=== PATIENT | male | born 1980 | race Caucasian/White ===

== ENCOUNTER → 2017-05-14 07:01 | Outpatient (CLI) | payer OTHER, SELFPAY ==
--- NOTE | 2017-05-14 07:00 | CT_ITS ---
STUDY: CT CHEST WITHOUT CONTRAST REASON FOR EXAM: Male, 36 years old. History of pulmonary nodules. RADIATION DOSAGE (If Supplied By Facility): CTDIvol = ( 16.71 ) mGy, DLP = ( 659.81 ) mGycm TECHNIQUE: Transaxial imaging was performed without the administration of intravenous contrast material. Multiplanar coronal and sagittal images were reformatted. Individualized dose optimization techniques were used for this CT. COMPARISON: Comparison is made with prior CT scan of the chest dated August 10, [address] scan and abdomen dated February 01, 2017. FINDINGS: A 2 mm noncalcified nodule is seen in the anterior inferior aspect of the lingular segment of the left upper lobe as seen on axial image 89. A 2 mm noncalcified nodule is also seen in the left lower lobe adjacent to the left diaphragmatic leaflet on axial image 89. These may represent tiny granulomas. There is no demonstrated pleural abnormality. Normal heart and pericardium. Normal mediastinum. Normal hilar regions. Normal unenhanced pulmonary arteries. Normal aorta arch and descending thoracic aorta. There are degenerative changes of the thoracic spine. There is no demonstrated abnormality of the visualized upper abdomen. CT/Chest without Contrast IMPRESSION: Stable appearance of the small noncalcified nodules in the lingular segment of the left upper lobe as well as in the posterior aspect of the left lower lobe. A follow-up examination in 12 months is recommended. Electronically Signed: Samuel Swenson MD at 15:53 EST Tel [phone], Service support ,
== END ==
PROVIDERS: Family Provider Internal Medicine; PCP Internal Medicine; Visit Provider Internal Medicine Critical Care Medicine
DX: R91.1 Solitary pulmonary nodule (principal)
CPT/HCPCS: 71250

== ENCOUNTER 2018-03-18 07:42 | Emergency (ER) | payer OTHER, SELFPAY ==
[2018-03-18 07:43] VITALS: BP 147/88; PULSE 72; RESP 16; TEMP 36.2; O2SAT 98; BMI 26.6
--- NOTE | 2018-03-18 08:03 | ED.VISSUMM ---
- ER Visit Summary Date of Service: 03/18/18 Chief Complaint: Right calf sensation and migration medial right thigh History of Present Illness: The patient is a 37 M who has no significant past medical history on no medications presents because of mid right calf pain. His description of the pain is a sensation. He presents because of concern for DVT and specifically because it migrated. He states the pain was junction of the mid distal third of the medial right thigh. He now complains of a sensation at the junction of the mid and proximal third of the right thigh medial side. He denies chest pain, shortness of breath dyspnea on exertion. He has no risk factors for PE or DVT and no prior history. Physical Examination: Blood pressure is elevated 147/88. He appears in no distress. Examination the right leg reveals no swelling, discoloration, leg vein distention, palpable coarseness on the distribution of deep venous system. There is no inguinal lymphadenopathy. PT DP pulses are 2+ and symmetric. There is no pain to palpation the calf or medial right thigh. There is no findings to suggest superficial thrombophlebitis. Test Results: Well score for DVT is -2. Emergency Department Course and Treatment: Patient asked why I felt he did not have a DVT. After long explanation and discussion he was informed of the well score for DVT, studies that compared to Yi scoring system versus gestalt versus the use of d-dimer. He was informed of the cause of the sensation that he had in his right calf and now the sensation that he experienced medial right thigh is unknown. He was instructed to take ibuprofen. He felt that discomfort/sensation was not significant enough to warrant taking ibuprofen. Treatment Plan: Appropriate home-going instructions Disposition: Discharge to home Impression: Intermittent right calf and medial right thigh pain of unknown etiology initial encounter This note was generated with i[employer] dictation software. It may contain incorrect words, spelling, and punctuation that were not noted in review of the chart prior to signing ED Disposition - Plan for ED Patient: Disposition: Home or Assisted Living Chief Complaint: Lower Extremity Injury Instructions: ED Acute Pain [facility] Referrals: Janeth Blas, [Primary Care Provider] - 3-5 Days if not improving
--- NOTE | 2018-03-18 08:07 | ED.DCSUM_ITS ---
- ER Visit Summary Date of Service: 03/18/18 Chief Complaint: Right calf sensation and migration medial right thigh History of Present Illness: The patient is a 37 M who has no significant past medical history on no medications presents because of mid right calf pain. His description of the pain is a sensation. He presents because of concern for DVT and specifically because it migrated. He states the pain was junction of the mid distal third of the medial right thigh. He now complains of a sensation at the junction of the mid and proximal third of the right thigh medial side. He denies chest pain, shortness of breath dyspnea on exertion. He has no risk factors for PE or DVT and no prior history. Physical Examination: Blood pressure is elevated 147/88. He appears in no distress. Examination the right leg reveals no swelling, discoloration, leg vein distention, palpable coarseness on the distribution of deep venous system. There is no inguinal lymphadenopathy. PT DP pulses are 2+ and symmetric. There is no pain to palpation the calf or medial right thigh. There is no findings to suggest superficial thrombophlebitis. Test Results: Well score for DVT is -2. Emergency Department Course and Treatment: Patient asked why I felt he did not have a DVT. After long explanation and discussion he was informed of the well score for DVT, studies that compared to Wolof scoring system versus gestalt v ersus the use of d-dimer. He was informed of the cause of the sensation that he had in his right calf and now the sensation that he experienced medial right thigh is unknown. He was instructed to take ibuprofen. He felt that discomfort/sensation was not significant enough to warrant taking ibuprofen. Treatment Plan: Appropriate home-going instructions Disposition: Discharge to home Impression: Intermittent right calf and medial right thigh pain of unknown etiology initial encounter This note was generated with [employer] dictation software. It may contain incorrect words, spelling, and punctuation that were not noted in review of the chart prior to signing ED Disposition - Plan for ED Patient: Disposition: Home or Assisted Living Chief Complaint: Lower Extremity Injury Instructions: ED Acute Pain [facility] Referrals: Janeth Blas DO [Primary Care Provider] - 3-5 Days if not improving
--- OUTSIDE RECORDS SUMMARY | 2018-06-19 12:51 | XMS RPT_ITS ---
:1980 Author Organization OHIP Care Team Providers Name Role Phone Janeth Blas Primary Care Unavailable Jozef Cantu Attending Unavailable Elias Sheets D.O. Attending Unavailable Elias Sheets D.O. Referring Unavailable Janeth Blas Primary Care Unavailable Fely Carrillo Attending Unavailable Janeth Blas Referring Unavailable PROBLEMS PROBLEMS DATE TYPE CONDITION / CODE ATTENDING STATUS SOURCE 05/23/2017 Unknown R91.1 - Solitary Clara Carrillo pulmonary nodule Fely [facility] / R91.1(ICD-10) Hospital Repository PROCEDURES PROCEDURES No Procedure Records FoundRESULTS RESULTS EMERGENCY DEPARTMENT Observed: 03/18/2018 Status: F Source: [place] SUMMARY 8:08 AM [facility] REPOSITORY [facility] Medical Records Department [address] [place] [address] Emergency Department Summary 03/18/18 0803 MR#: [id number] Acct: [id number] Name: JOSH ROBERSON Rep #: [id number] : 1980 37 From: Jozef Cantu MD PCP: Janeth Blas DO Status: REG ER - ER Visit Summary Date of Service: 03/18/18 Chief Complaint: Right calf sensation and migration medial right thigh History of Present Illness: The patient is a 37 M who has no significant past medical history on no medications presents because of mid right calf pain. His description of the pain is a sensation. He presents because of concern for DVT and specifically because it migrated. He states the pain was junction of the mid distal third of the medial right thigh. He now complains of a sensation at the junction of the mid and proximal third of the right thigh medial side. He denies chest pain, shortness of breath dyspnea on exertion. He has no risk factors for PE or DVT and no prior history. Physical Examination: Blood pressure is elevated 147/88. He appears in no distress. Examination the right leg reveals no swelling, discoloration, leg vein distention, palpable coarseness on the distribution of deep venous system. There is no inguinal lymphadenopathy. PT DP pulses are 2+ and symmetric. There is no pain to palpation the calf or medial right thigh. There is no findings to suggest superficial thrombophlebitis. Test Results: Well score for DVT is -2. Emergency Department Course and Treatment: Patient asked why I felt he did not have a DVT. After long explanation and discussion he was informed of the well score for DVT, studies that compared to Faroese scoring system versus gestalt versus the use of d-dimer. He was informed of the cause of the sensation that he had in his right calf and now the sensation that he experienced medial right thigh is unknown. He was instructed to take ibuprofen. He felt that discomfort/sensation was not significant enough to warrant taking ibuprofen. Treatment Plan: Appropriate home-going instructions Disposition: Discharge to home Impression: Intermittent right calf and medial right thigh pain of unknown etiology initial encounter This note was generated with [employer] dictation software. It may contain incorrect words, spelling, and punctuation that were not noted in review of the chart prior to signing ED Disposition - Plan for ED Patient: Disposition: Home or Assisted Living Chief Complaint: Lower Extremity Injury Instructions: ED Acute Pain UKO Referrals: Janeth Blas DO [Primary Care Provider] - 3-5 Days if not improving What to do if you have Problems For any increased pain, shortness of breath, bleeding, nausea or vomiting, chest pain, or any unexpected problems, contact your Primary Care Provider. Call [facility] ([phone]) or report to the closest Emergency Room. Call 911 if necessary. 03/18/18 0808 <Electronically signed by Jozef Cantu MD> Date Jozef Cantu MD Cosigner Signature (If Indicated): Date CC: Janeth Blas DO PROGRESS Observed: 03/10/2018 Status: COMPLETED Source: [place] 9:01 PM [facility] REPOSITORY O ID: [id number] Author: Soraida Cruz Service: (none) Author Type: Nurse Practitioner Type: Progress Notes Filed: 03/10/2018 9:08 PM Note Text: Subjective HPI Pt presents with concern for cellulitis to right forearm/elbow. State had a quarter sized area of red, hot skin x 3 days. States the next am, redness had spread to elbow and elbow was swollen and very tender to touch. Denies fever, chills, myalgias. Denies recent/remote injury No hx gout. Father has gout. Denies participation in sports, repetitive/overuse movements. Full ROM, no pain with flexion/extension. Has taken 4 doses of PCN left over from 's rx for an illness. States swelling has decreased 50% and redness is lead handler in color. Has taken several doses of ibuprofen as well. Review of Systems Constitutional: Negative for chills and fever. Musculoskeletal: Positive for joint pain. Negative for myalgias. Skin: Positive for rash. Objective Physical Exam Constitutional: He is oriented to person, place, and time and well-developed, well-nourished, and in no distress. No distress. Musculoskeletal: Right elbow: He exhibits swelling. He exhibits normal range of motion, no effusion, no deformity and no laceration. No tenderness found. No radial head, no medial epicondyle, no lateral epicondyle and no olecranon process tenderness noted. Full active ROM against resistance. Mild erythema over elbow extending about 1/2 in to upper and lower arm. No heat, induration, rash noted. Moderate swelling. Sensory inact Cap refill 2 sec. Brachial and radial pulses 2+. Neurological: He is alert and oriented to person, place, and time. Skin: Skin is warm and dry. He is not diaphoretic. BP 130/82 Pulse 68 Temp 36.6 ?C (97.8 ?F) (Tympanic) Resp 16 Wt 90.9 kg (200 lb 6.4 oz) BMI 27.17 kg/m? .Patient presents with: right elbow cellulitis: stated 48 hours ago and cannot recall an injury No past medical history on file. No past surgical history on file. ALLERGIES Patient has no known allergies. MEDICATIONS ibuprofen (MOTRIN) 400 mg tablet Take 1 tablet by mouth every 6 hours as needed. predniSONE (DELTASONE) 20 mg tablet Take 2 tablets by mouth once daily for 5 days. Take daily with food. sulfamethoxazole-trimethoprim (BACTRIM DS) 800-160 mg per tablet Take 1 tablet by mouth twice daily for 10 days. acetaminophen (TYLENOL) 325 mg tablet Take 2 tablets by mouth every 6 hours as needed for Fever. docusate sodium (COLACE) 100 mg capsule Take 1 capsule by mouth twice daily. oxyCODONE immediate release (PERCOLONE) 5 mg immediate release tablet Take 1-2 tablets by mouth every 4 hours as needed. Iron 18 mg tab Take 1 tablet by mouth twice daily. No family history on file. Social History Substance Use Topics - Smoking status: Never Smoker - Smokeless tobacco: Never Used - Alcohol use Not on file ASSESSMENT/PLAN: 1. Skin irritation - ICD9: 709.9, ICD10: R23.8 (primary diagnosis) - SULFAMETHOXAZOLE 800 MG-TRIMETHOPRIM 160 MG TABLET 2. Elbow swelling, right - ICD9: 719.02, ICD10: M25.421 - PREDNISONE 20 MG TABLET Reviewed red flag SANDS septic joint, SANDS requiring emergent evaluation. Pt verbalizes understanding. The patient is instructed to return or seek emergency treatment if symptoms become worse or with any acute change in condition. The patient verbalizes understanding and is in agreement with plan of care. Soraida Cruz CNP CNOV Observed: 03/10/2018 Status: COMPLETED Source: [place] 7:15 PM [facility] REPOSITORY Office Visit (WSTR) JOSH ROBERSON ([id number]) 1980 M Date Time Provider Department 03/10/18 7:[address] [facility] During your visit today, we recorded the following information about you: Temperature Pulse Respiration Blood pressure 97.8 degrees 68/minute 16/minute 130/82 Weight 90.9 kg Soraida Cruz APRN.CNP 03/10/2018 9:08 PM Signed Subjective HPI Pt presents with concern for cellulitis to right forearm/elbow. State had a quarter sized area of red, hot skin x 3 days. States the next am, redness had spread to elbow and elbow was swollen and very tender to touch. Denies fever, chills, myalgias. Denies recent/remote injury No hx gout. Father has gout. Denies participation in sports, repetitive/overuse movements. Full ROM, no pain with flexion/extension. Has taken 4 doses of PCN left over from 's rx for an illness. States swelling has decreased 50% and redness is lead handler in color. Has taken several doses of ibuprofen as well. Review of Systems Constitutional: Negative for chills and fever. Musculoskeletal: Positive for joint pain. Negative for myalgias. Skin: Positive for rash. Objective Physical Exam Constitutional: He is oriented to person, place, and time and well-developed, well-nourished, and in no distress. No distress. Musculoskeletal: Right elbow: He exhibits swelling. He exhibits normal range of motion, no effusion, no deformity and no laceration. No tenderness found. No radial head, no medial epicondyle, no lateral epicondyle and no olecranon process tenderness noted. Full active ROM against resistance. Mild erythema over elbow extending about 1/2 in to upper and lower arm. No heat, induration, rash noted. Moderate swelling. Sensory inact Cap refill 2 sec. Brachial and radial pulses 2+. Neurological: He is alert and oriented to person, place, and time. Skin: Skin is warm and dry. He is not diaphoretic. BP 130/82 Pulse 68 Temp 36.6 ?C (97.8 ?F) (Tympanic) Resp 16 Wt 90.9 kg (200 lb 6.4 oz) BMI 27.17 kg/m? .Patient presents with: right elbow cellulitis: stated 48 hours ago and cannot recall an injury No past medical history on file. No past surgical history on file. ALLERGIES Patient has no known allergies. MEDICATIONS ibuprofen (MOTRIN) 400 mg tablet Take 1 tablet by mouth every 6 hours as needed. predniSONE (DELTASONE) 20 mg tablet Take 2 tablets by mouth once daily for 5 days. Take daily with food. sulfamethoxazole-trimethoprim (BACTRIM DS) 800-160 mg per tablet Take 1 tablet by mouth twice daily for 10 days. acetaminophen (TYLENOL) 325 mg tablet Take 2 tablets by mouth every 6 hours as needed for Fever. docusate sodium (COLACE) 100 mg capsule Take 1 capsule by mouth twice daily. oxyCODONE immediate release (PERCOLONE) 5 mg immediate release tablet Take 1-2 tablets by mouth every 4 hours as needed. Iron 18 mg tab Take 1 tablet by mouth twice daily. No family history on file. Social History Substance Use Topics - Smoking status: Never Smoker - Smokeless tobacco: Never Used - Alcohol use Not on file ASSESSMENT/PLAN: 1. Skin irritation - ICD9: 709.9, ICD10: R23.8 (primary diagnosis) - SULFAMETHOXAZOLE 800 MG-TRIMETHOPRIM 160 MG TABLET 2. Elbow swelling, right - ICD9: 719.02, ICD10: M25.421 - PREDNISONE 20 MG TABLET Reviewed red flag SANDS septic joint, SANDS requiring emergent evaluation. Pt verbalizes understanding. The patient is instructed to return or seek emergency treatment if symptoms become worse or with any acute change in condition. The patient verbalizes understanding and is in agreement with plan of care. Soraida Cruz CNP Referring Provider: SELF [[id number]] Allergies As of Date: 03/10/2018 (No Known Allergies) Date Reviewed: 03/10/2018 Reviewed by: Indira Steward LPN - Fully Assessed Reason for Visit: right elbow cellulitis [Other] Cmt: stated 48 hours ago and cannot recall an injury Primary Visit Diagnosis:Skin irritation [R23.8] Other Visit Diagnosis:Elbow swelling, right [M25.421] Order(s):predniSONE (DELTASONE) 20 mg tabletTake 2 tablets by mouth once daily for 5 days. Take daily with food.Disp: 10 tabletRfl: 0 sulfamethoxazole-trimethoprim (BACTRIM DS) 800-160 mg per tabletTake 1 tablet by mouth twice daily for 10 days.Disp: 20 tabletRfl: 0 Prescriptions as of 03/10/2018 Sig: IBUPROFEN 400 MG TABLET Take 1 tablet by mouth every * PREDNISONE 20 MG TABLET Take 2 tablets by mouth once * SULFAMETHOXAZOLE 800 MG-TRIME* Take 1 tablet by mouth twice * ACETAMINOPHEN 325 MG TABLET Take 2 tablets by mouth every* DOCUSATE SODIUM 100 MG CAPSULE Take 1 capsule by mouth twice* Patient not taking: Reported on 03/10/2018 OXYCODONE 5 MG TABLET Take 1-2 tablets by mouth tony* Patient not taking: Reported on 03/10/2018 IRON 18 MG TABLET Take 1 tablet by mouth twice * Problem List As Of Date 03/10/2018 Noted Resolved LGI bleed [K92.2] INVALID FOR* Hemorrhoids [K64.9] INVALID FOR* Post-operative pain [G89.18] INVALID FOR* Prescriptions ordered this encounter Disp Refills Start End PREDNISONE 20 MG TABLET 10 t* 0 03/10/2018 03/15/2018 Route: ORAL Sig: Take 2 tablets by mouth once daily for 5 days. Take daily with food. SULFAMETHOXAZOLE 800 MG-TRIMETHOPRIM* 20 t* 0 03/10/2018 03/20/2018 Cmt: Ok to give generic equivalent Route: ORAL Sig: Take 1 tablet by mouth twice daily for 10 days. Encounter Status:Closed by SORAIDA CRUZ CNP on 03/10/18 PULMONARY VISIT REPORT Observed: 05/23/2017 Status: F Source: [place] 8:36 AM [facility] REPOSITORY [facility] [address] [place] [address] OFFICE VISIT Date of Service: 05/23/17 MR#: [id number] Acct: [id number] Name: JOSH ROBERSON Rep #: [id number] : 1980 Provider: Fely Carrillo Age/Sex: 36/M Location: [facility] Status: Signed Assessment AND Plan 1. Pulmonary nodule R91.[address] of the chest. Follow-up in 1 year. He may contact the office meantime if new or worsening symptoms present. Orders Orders: Plan Detail Follow Up 1 Year (DMB) HPI 1 M FU: Chief Complaint: review CT results HPI Comments Details: This is a 36 year old very pleasant M, currently under the care of Janeth Blas, here today to review test results. I personally reviewed the tests/images/tracings which showed: I personally reviewed a chest CT, that was completed on May 14, 2017, that showed 2 stable 2 mm nodules, one in the left upper lobe and one in the left lower lobe. [place] to be granulomas. Per Fleischner's guidelines follow-up will be a repeat CT in 12 months. He denies any shortness of breath, wheezing or chest tightness. He denies any weight loss or easy bruising/bleeding. He denies any lymphadenopathy. He denies any cough or sputum production, denies hemoptysis. See complete review of systems. Intake Vital Signs05/23/17 Height 6 ft 05/23/17 Weight: 207 lb Intake Visit Reasons: 1 M FU Allergies No Known Allergies Allergy (Verified 02/01/17 19:05) [facility] Medical History Pulmonary nodule (Chronic) Rectal prolapse (Acute) Acute bacterial conjunctivitis (Acute) Acute posthemorrhagic anemia (Acute) Allergic rhinitis (Acute) Chest pain on breathing (Acute) Chlamydia contact (Acute) Elevated d-dimer (Acute) Hematuria, microscopic (Acute) Neoplasm of uncertain behavior of skin (Acute) Paresthesias (Acute) Sleep deprivation (Acute) Thyromegaly (Acute) Anxiety (Chronic) Pulmonary nodules (Chronic) Tremor (Chronic) Surgical History H/O hemorrhoidectomy (Resolved) right ankle surgery (Resolved) Family History Mother bipolar disorder Grandmother Breast cancer Alzheimers disease Sister Fibromyalgia Social History household members: none Smoking Status: Never smoker second hand exposure: No alcohol intake: current alcohol intake frequency: holidays/special occasions only substance use type: does not use caffeine: Yes Type: coffee what type of physical activity do you participate in: walking frequency: daily Review of Systems Const CONSTITUTIONAL: Negative anorexia, body ache, chills, daytime sleepiness, fever(s), night sweats, oral thrush, stops breathing during sleep, weight loss, sleeping in chair, fatigue, weight loss, weight gain, frequent colds, seasonal allergies, other, headache(s) or orthopnea EETM Ear Nose Throat Mouth: Positive hearing normal; negative hard of hearing, hoarseness, dry mouth in morning, change in vision, itchy eyes, eye pain, swallowing Difficulty, ear pain, nose bleed, headache(s), mouth pain, nasal congestion, nasal discharge, post nasal drip, sinus pain, sinus pressure, sore throat or other Cardio Cardiovascular: Negative chest pain, chest pain at rest, chest pain with activity, irregular heart rhythm, edema, shortness of breath when lying down, palpitations, murmur or other Resp Respiratory: Positive as per HPI; negative shortness of breath, pain with cough, wheezing, chest congestion, cough, chest tightness, pain on inspiration, inhalers, increase use of rescue inhalers, snoring, apnea or other Gastro Gastrointestional: Negative bloody stools, change in appetite, difficulty swallowing, reflux, hematemesis, melena stool, loose stool, constipation or other Genitourinary: Negative blood in urine, nocturia, pain with urination or other Musc Musculoskeletal: Negative body pain, back pain, neck pain or other Skin/Breast Skin/Breast: Negative dry skin, itching, rash, unusual bruising, breast lump or other Neuro Neurological: Negative restless legs, confusion, weakness or other Psych Psychocological: Negative abnormal sleep pattern, anxiety, thoughts of hurting self/others, hopelessness or other Lymph Lymphatic: Negative easy bleeding, easy bruising, swollen lymph nodes or other Exam Const Constitutional: Positive conversant, cooperative, in no acute respiratory distress, healthy appearing, well developed, well nourished and good hygiene Head Head: Positive normocephalic and atraumatic; negative cyanosis of lips/distal nose Eyes Eye: Positive clear conjunctiva and nystagmus; negative scleral abnormality Ears Ear: Positive hearing normal and external ears normal; negative hard of hearing Nose Nose: Positive external nose normal and no nasal discharge; negative epistaxis Mouth Mouth: Positive oral mucosae normal, no lesions, good dentition and posterior oropharynx is adequate; negative post nasal drip, malodorous breath or oral thrush present Mallampati Score: I: Mallampati Score Neck Neck: Positive normal visual inspection, full ROM and trachea midline; negative lymphadenopathy, JVD or tender Chest Wall Chest: Positive normal inspection of the chest and symmetric chest movement; negative increased A/P diameter Resp lung sounds: Positive clear to auscultation, good air exchange, normal expiratory time and normal respiratory effort; negative diminished, wheezes, rhonchi, rales, dullness to percussion, wheeze present on forced exhalation, increased work of breathing or use of accessory muscles Cardio Cardiac: Positive regular rate; negative murmur, regular rhythm, S1 normal or S2 normal GI GI: Positive normal to inspection and normal bowel sounds; negative distended Genitourinary: Positive deferred Musc Musculoskeletal: Positive steady gait and ROM normal; negative kyphosis or scoliosis Skin Pulmonary Skin Exam: Positive intact; negative rash, lesion, ulcers, erythema, scaly or dermal atrophy Pulses Pulse: Yes pulses normal x4 extremities Extremities Extremities: Yes capillary refill normal, No clubbing, No cyanosis, No edema, No stasis dermatitis Neuro Neurologic: Yes conversant, Yes no focal neuro deficits, Yes cooperative, Yes normal cognition, Yes normal coordination, Yes understands questions, Yes normal concentration Lymph Lymphatic: No lymphadenopathy, No tenderness, No cervical adenopathy, No axillary adenopathy Psych Appearance: Positive grossly normal, eye contact and well kempt Mental Status: Positive mental status grossly normal Mood: Positive congruent mood Affect: Positive normal affect Coding Level of Care Code Off vis,est,level 3 Diagnoses Pulmonary nodule R91.1 05/23/17 0836 <Electronically signed by Fely GARCIA> Date Fely Carrillo MARINE STRUCTURAL DESIGNER-C Cosigner Signature: Date (if applicable) CC: Janethbhavna Blas DO CHEST WITHOUT Observed: 05/14/2017 Status: F Source: [place] CONTRAST 7:03 AM [facility] REPOSITORY [facility] Imaging Services [address] [place] [address] Chest without Contrast MR#: [id number] Acct: [id number] Name: JOSH ROBERSON Rep #: [id number] : 1980 M 36 From: Samuel Swenson MD PCP: Janeth Blas DO Status: REG CLI Study: Chest without Contrast Date of Exam: 05/14/17 Exam# [id number] Ordering Dr: Elias Sheets DO STUDY: CT CHEST WITHOUT CONTRAST REASON FOR EXAM: Male, 36 years old. History of pulmonary nodules. RADIATION DOSAGE (If Supplied By Facility): CTDIvol = ( 16.71 ) mGy, DLP = ( 659.81 ) mGycm TECHNIQUE: Transaxial imaging was performed without the administration of intravenous contrast material. Multiplanar coronal and sagittal images were reformatted. Individualized dose optimization techniques were used for this CT. COMPARISON: Comparison is made with prior CT scan of the chest dated August 10, [address] scan and abdomen dated February 01, 2017. FINDINGS: A 2 mm noncalcified nodule is seen in the anterior inferior aspect of the lingular segment of the left upper lobe as seen on axial image 89. A 2 mm noncalcified nodule is also seen in the left lower lobe adjacent to the left diaphragmatic leaflet on axial image 89. These may represent tiny granulomas. There is no demonstrated pleural abnormality. Normal heart and pericardium. Normal mediastinum. Normal hilar regions. Normal unenhanced pulmonary arteries. Normal aorta arch and descending thoracic aorta. There are degenerative changes of the thoracic spine. There is no demonstrated abnormality of the visualized upper abdomen. CT/Chest without Contrast IMPRESSION: Stable appearance of the small noncalcified nodules in the lingular segment of the left upper lobe as well as in the posterior aspect of the left lower lobe. A follow-up examination in 12 months is recommended. Electronically Signed: Samuel Swenson MD at 15:53 EST Tel [phone], Service support , CC: Elias Sheets D.O.; Janeth Blas DO Research Psychologist: Signed ALLERGIES ALLERGIES DATE TYPE / CODE NAME / CODE REACTION SEVERITY SOURCE 03/18/2018 Drug No Known Unknown [facility] Allergy/416 Allergies/Q30610 Hospital 854931(SNOM 0388(RXNORM) Repository ED CT) Drug NO KNOWN [facility] Class/02355 ALLERGIES [facility] 1003(SNOMED Repository CT) ENCOUNTERS ENCOUNTERS ADMIT/DISCHARGE ACCOUNT ADMITTING ENCOUNTER LOCATION SOURCE NUMBER CLASS 03/18/2018/03/18/20 [id number] Emergency [address] ing:ED Repository 03/10/2018/03/11/20 [id number] Ambulatory [address] Repository 05/23/2017/05/23/19 [id number] Ambulatory BMSBuilding:B [address] Repository 05/14/2017 [id number] Ambulatory [facility] ing:CT Repository PAYERS PAYERS ENCOUNTER GUARANTOR PAYER SUBSCRIBER SOURCE 03/18/2018 JOSH Vasquez Primary JOSH Gifford [id number] Insurance:[place]ANT[place]: [id number] Number: 5956Effective Repository [address]Zmn: [phone] Date:[id number] [phone] () [address]ICAL [address], [place] [address]OJ: 03/18/2018 Secondary NOT GIVENUNK [place] Insurance:SELF PAY [facility] Number: Effective Repository Date:2018-03-18 05/23/2017 JOSH Vasquez Primary JOSH ROBERSON[address] Insurance:[place]ANT[place]: [place] [id number], [place] Number: [id number] Repository [id number]: ([phone]) Date:[id number] [phone] () [address], [place] [address]DJ: 05/23/2017 Secondary NOT GIVENUNK [place] Insurance:SELF PAY [facility] Number: Effective Repository Date:2017-04-23 05/14/2017 ABDI Primary JOSH ROBERSON[address] Insurance:[place]: [facility] Center[facility] [id number], [place] Number: [id number] Repository [phone]: ([phone]) Date:[id number] [phone] () [address], [place] [address]QW: 05/14/2017 Secondary NOT GIVENUNK [place] Insurance:SELF PAY [facility] Number: Effective Repository Date:2017-04-23
== END 2018-03-18 08:10 | disposition home or self-care (01) ==
PROVIDERS: Emergency Provider Emergency Medicine; Family Provider Internal Medicine; PCP Internal Medicine
DX: M79.661 Pain in right lower leg (principal); M79.651 Pain in right thigh; R03.0 Elevated blood-pressure reading, without diagnosis of hypertension
CPT/HCPCS: 99282

== ENCOUNTER 2020-10-17 03:50 | Emergency (ER) | payer BC, SELFPAY ==
[2020-10-17 03:53] VITALS: BP 134/85; PULSE 65; RESP 19; TEMP 36.8; O2SAT 98; BMI 27.1
--- NOTE | 2020-10-17 04:03 | EKG12_ITS ---
Test Reason : CP Blood Pressure : / mmHG Vent. Rate : 062 BPM Atrial Rate : 062 BPM P-R Int : 146 ms QRS Dur : 094 ms QT Int : 406 ms P-R-T Axes : 036 036 020 degrees QTc Int : 412 ms Normal sinus rhythm with sinus arrhythmia Normal ECG Confirmed by SUSANNE HEREDIA, ALMAZ ([id number]), purchase request editor ALBINO REDMAN ([id number]) on 10/19/2020 12:30:55 PM Referred By: PAUL Confirmed By:ALMAZ SKINNER MD
[2020-10-17 04:08] LABS: Absolute Lymphocyte Count 1.94 X10^3/uL (0.83-4.51); Basophil# 0.05 X10^3/uL; Basophil% 1.1 % (0-1); Eosinophil# 0.12 X10^3/uL; Eosinophils% 2.6 % (0-5); Hematocrit 40.8 % (40-54); Hemoglobin 14.1 g/dL (13.0-16.5); Lymphocyte # 1.94 X10^3/ul (0.83-4.51); Lymphocyte % 42.5 % (19-41); Mean Corp Hgb Conc 34.6 g/dL (32-36); Mean Corpuscular Hgb 31.4 pg (27.0-32.0); Mean Corpuscular Volume 90.9 fL (80-94); Mean Platelet Vol. 10.1 fl (6.2-12.0); Monocyte# 0.44 X10^3/uL; Monocyte% 9.6 % (0-10); NRBC Flagged by Analyzer 0 % (0-5); Neutrophil # 1.99 X10^3/uL (2.7-7.7); Neutrophil % 43.8 % (47-70); Platelet Count 229 K/mm3 (150-450); RBC Distribution Width CV 11.9 % (11.6-14.6); RBC Distribution Width SD 39.4 fl (35.1-43.9); Red Blood Count 4.49 M/mm3 (4.6-6.2); White Blood Count 4.6 K/mm3 (4.4-11.0)
--- NOTE | 2020-10-17 04:10 | ED.VIS.CHEST ---
HPI History of Present Illness Chief Complaint: Chest Pain Informant: patient Onset/Context/Timing Onset: Today Activity at onset: unknown Timing: Intermittent Location: Left Chest Current Severity: Gone Maximum Severity: Mild Worsened By: Movement of Arm and Movement of Torso Associated Symptoms: Negative for Nausea, Vomiting, Diaphoresis, Cough, Fever and Lightheadedness Narrative Narrative: 40-year-old male no seen past medical history. Works as a builder. Said he does not sleep well normally awoke tonight and he had some left upper chest discomfort which she said was made worse with movement. He thinks he may have injured it at his job but he said he does not remember any specific injury. He denies nausea or diaphoresis. He said he may have been a little short of breath but is not currently in the chest pain is now gone. Said he got on the Internet became anxious and came in to be evaluated. He has never had a DVT or PE denies any leg pain or swelling. His last trip was over a month ago. He denies any hemoptysis or pleuritic pain. There is no significant family history of cardiac disease or blood clots in his family. He denies any recent exertional chest pain or exertional shortness of breath. Prior Similar Symptoms: No Recent Illness/Hospitalization: No CVD Risk Factors: Negative for Hypertension, Diabetes, Hypercholesterolemia, Family History 1' </=55 and Smoking PE Risk Factors: Negative for Recent Travel/Surgery, Recent Immobilization, Prior DVT or PE, Cancer and OCP + Smoking + >/=35 TAD Risk Factors: Negative for Marfan's Syndrome and Hypertension [facility] Medical History (Updated 10/17/20 @ 04:[address] Spencer Harrington MD) Acute bacterial conjunctivitis Acute posthemorrhagic anemia Allergic rhinitis Anxiety Chest pain on breathing Chlamydia contact Elevated d-dimer Hematuria, microscopic Neoplasm of uncertain behavior of skin Paresthesias Pulmonary nodule Pulmonary nodules Rectal prolapse Sleep deprivation Thyromegaly Tremor Home Medications NK 03/18/18 [History Last Taken Unknown] Allergy/AdvReac Type Severity Reaction Status Date / Time No Known Allergies Allergy Verified 10/17/20 03:52 Family History Mother bipolar disorder Grandmother Breast cancer Alzheimers disease Sister Fibromyalgia Surgical History H/O hemorrhoidectomy right ankle surgery Social History household members: none Smoking Status: Former smoker second hand exposure: No alcohol intake: current alcohol intake frequency: holidays/special occasions only substance use type: does not use caffeine: Yes Type: coffee what type of physical activity do you participate in: walking frequency: daily ROS ROS ED ROS Narrative Denies. Review of Systems ROS Unobtainable: Denies due to encephalopathy Constitutional Constitutional ED: Denies chills or fever(s) Eyes Eyes: Denies none ENT ENT ED: Denies ear pain or sore throat Cardiovascular Cardiovascular: Reports chest pain; Denies palpitations or racing heartbeat Respiratory/Chest Respiratory/Chest: Reports dyspnea; Denies cough or sputum Gastrointestinal Gastrointestinal: Denies abdominal pain, nausea or vomiting Genitourinary Genitourinary ED: Denies dysuria Musculoskeletal Musculoskeletal: Denies myalgias Integumentary Denies abscess or rash Neurologic Neurologic: Denies headache(s) Psychiatric Psychiatric: Denies depression Endocrine Endocrinology: Denies polyuria Hematologic/Lymphatic Hematologic/Lymphatic: Denies easy bruising Allergic/Immunologic Allergic/Immunologic ED: Denies urticaria EXAM Physical Exam Narrative Exam Narrative: Well-appearing middle-aged male. Slightly anxious. Vital signs stable afebrile. Pulse ox 90% on room air no signs hypoxia. HEENT exam normal. Neck nontender no JVD. Lungs clear to auscultation bilaterally. Heart regular rate and rhythm no murmur rate about 65. Chest were nontender. Abdomen soft nontender normal bowel sounds no peritoneal signs. Remedies moves all 4. Calves nontender no edema no cords. Equal symmetrical radial pulses. Back nontender. Neurologically is awake alert with no focal motor deficits. Const Vital Signs: 10/17/20 03:53 10/17/20 03:55 10/17/20 04:18 Temperature 98.2 F Temperature Source Temporal Pulse Rate 65 Respiratory Rate 19 H Respiratory Effort Normal Respiratory Pattern Normal Blood Pressure 134/85 H Blood Pressure Mean 101 Pulse Ox 98 Oxygen Delivery Method Room Air Room Air Positive well nourished and well developed General Appearance ED: well developed and NAD HEENT Reports moist mucous membranes normocephalic and atraumatic Eyes PERRL and EOMs intact bilaterally Neck no lymphadenopathy, supple and no JVD General: Negative for tenderness Chest Wall inspection of chest normal and palpation of chest normal Chest: Negative for tenderness Resp normal respiratory effort and clear to auscultation bilaterally Effort and Inspection: respiratory distress Cardio regular rate, regular rhythm, S1 normal heart sound, S2 normal heart sound and no murmurs Rate: Negative for bradycardia or tachycardic GI normal to inspection, nondistended, normoactive bowel sounds, soft to palpation, non-tender, non-distended and no masses; Negative for hepatosplenomegaly Auscultation: Negative for hyperactive bowel sounds Palpation: Negative for splenomegaly Back/Spine no CVA tenderness Extremity normal to inspection General Extremety ED: Negative for edema, pulses abnormal or tenderness General Extremity: Negative for edema or pulses abnormal Neuro oriented x3 and CN's II-XII intact bilaterally Sensorium / Orientation: awake, alert, oriented to person, oriented to place and oriented to time Motor Exam: strength 5/5 throughout Psych mental status grossly normal Mood & Affect: anxious Skin no rashes or lesions noted and no wounds Heart Score History: Slightly/Non-Suspicious ECG: Normal Age: </= 45 years Risk Factors: No Risk Factors Troponin: </= Normal Limit Score: 0 MDM MDM MDM Narrative Medical decision making narrative: Patient with atypical noncardiac sounding chest pain. No recent symptoms. Clinically is anxious. No history of DVT or PE or strong risk factors. No calf pain or swelling. Undergo cardiac work-up. Clinically I think this is more anxiety. Repeat exam patient is doing well at 5:18 AM. He and I went over all his test results he will be discharged to home. He is resting comfortably his exam is normal and unchanged. He will follow up with his primary care physician. Lab Data Attestation: I reviewed the patient's lab results. Lab results narrative: CBC normal white count of 4 hemoglobin 14. EKG unremarkable. Electrolytes unremarkable gap at 9. Creatinine of 1. Troponin IV. Labs: Laboratory Results - last 24 hr 10/17/20 10/17/20 04:00 04:00 WBC 4.6 RBC 4.49 L Hgb 14.1 Hct 40.8 MCV 90.9 MCH 31.4 MCHC 34.6 RDW Std Deviation 39.4 RDW Coeff of Poli 11.9 Plt Count 229 MPV 10.1 Immature Gran % (Auto) 0.400 Neut % (Auto) 43.8 L Lymph % (Auto) 42.[address] [place] % (Auto) 9.6 Eos % (Auto) 2.6 Baso % (Auto) 1.1 H Absolute Neuts (auto) 2.0 Absolute Lymphs (auto) 1.94 Nucleated RBC % 0 Sodium 141 Potassium 3.6 Chloride 108 H Carbon Dioxide 24.0 Anion Gap 9 BUN 12 Creatinine 1.08 Estim Creat Clear Calc 101.79 Est GFR (MDRD) Af Amer 98 Est GFR (MDRD) Non-Af 81 BUN/Creatinine Ratio 11.1 Glucose 94 Calcium 8.5 Troponin I High Sens 4.4 Radiography Chest X-Ray - ED: 1 View, Read by ED Physician, Heart, Lungs, Mediastinum, Bony Structures and No Acute Disease Diagnostic Testing: Portable 1 view chest x-ray entered by myself shows no acute abnormality. Rhythm Strip Rhythm Strip: Sinus Rhythm Rate: 62 Ectopy: None EKG Initial EKG: Attestation: I personally reviewed and interpreted this EKG as follows: Interpretation: Sinus Rhythm and No Acute Injury Pattern Comments: Normal sinus rhythm rate of 62 no acute signs of CO or ischemia. Prior EKG tracings: not available for review Discharge Plan Triage Chief Complaint: Chest Pain ED Provider: Spencer Harrington Dx/Rx/DC Orders Clinical Impression: Chest pain of uncertain etiology Instructions: ED Chest Pain, Noncardiac, ED Chest Pain, Uncertain Cause Prescriptions: No Action NK RF: 0 Primary Care Provider: Janeth Blas Referrals: Janeth Blas DO [Primary Care Provider] - 3-5 Days if not improving Disposition Disposition: Home, Self Care
--- NOTE | 2020-10-17 04:15 | RAD_ITS ---
STUDY: X-RAY CHEST REASON FOR EXAM: Male, 40 years old. chest pain TECHNIQUE: Single AP portable view of the chest. COMPARISON: CT scan chest 05/14/2017. FINDINGS: w there is a metallic TB overlying the right lower lung field, possibly an artifact. There are no confluent pulmonary infiltrates. There is no demonstrated pleural abnormality. Normal size heart. Normal mediastinum and peter. Normal visualized aortic arch and descending thoracic aorta. There are no demonstrated acute fractures or destructive bone lesions. There is no demonstrated abnormality of the visualized soft tissue structures of the upper abdomen. RAD/Chest 1 View (Portable) IMPRESSION: No evidence for acute cardiopulmonary pathology. Electronically Signed: Edgardo Jett MD at 6:39 EDT , Service support ,
[2020-10-17] MEDS: Aspirin 81 MG TAB.CHEW 324 MG PO (04:24)
[2020-10-17 04:37] LABS: Anion Gap 9 (5-15); BUN 12 mg/dL (7-18); BUN/Creat Ratio 11.1 RATIO (10-20); Calcium,Total 8.5 mg/dL (8.5-10.1); Chloride 108 mmol/L (98-107); Creatinine, Serum 1.08 mg/dL (0.70-1.30); EST Glomerular Filtration Rate 81 mL/min (>60); Est Glom Filt Rate - Afr Amer 98 mL/min (>60); Estimated Creatinine Clearance 101.79 ml/min; Glucose 94 mg/dL (74-106); Potassium 3.6 mmol/L (3.5-5.1); Sodium Level 141 mmol/L (136-145); Troponin-I HS 4.4 pg/mL (3.0-78.5)
[2020-10-17 05:32] VITALS: BP 102/64; PULSE 116; RESP 20; O2SAT 97
== END 2020-10-17 05:32 | disposition home or self-care (01) ==
PROVIDERS: Emergency Provider Emergency Medicine; PCP Internal Medicine
DX: R07.9 Chest pain, unspecified (principal); Z87.891 Personal history of nicotine dependence
CPT/HCPCS: 71045; 80048; 84484; 85025; 93005; 99285

== ENCOUNTER 2022-04-05 12:40 | Emergency (ER) | payer BC, SELFPAY ==
[2022-04-05 12:41] VITALS: BP 164/96; PULSE 72; RESP 18; TEMP 36.4; O2SAT 95; BMI 27.8
--- NOTE | 2022-04-05 13:18 | EKG12_ITS ---
Test Reason : CP Blood Pressure : / mmHG Vent. Rate : 072 BPM Atrial Rate : 072 BPM P-R Int : 148 ms QRS Dur : 084 ms QT Int : 384 ms P-R-T Axes : 024 020 012 degrees QTc Int : 420 ms Normal sinus rhythm Normal ECG Confirmed by TAY HEREDIA, AAKASH ([id number]), editorial clerk ALBINO REDMAN ([id number]) on 04/09/2022 10:33:43 AM Referred By: YURI Confirmed By:PATY CROSS MD
[2022-04-05 13:26] LABS: Absolute Lymphocyte Count 1.72 X10^3/uL (0.83-4.51); Absolute Neutrophil Count 3.3 X10^3/uL (2.0-7.7); Basophil# 0.06 X10^3/uL; Basophil% 1.1 % (0-1); Eosinophil# 0.12 X10^3/uL; Eosinophils% 2.1 % (0-5); Hematocrit 43.5 % (40-54); Hemoglobin 15.8 g/dL (13.0-16.5); Lymphocyte # 1.72 X10^3/ul (0.83-4.51); Lymphocyte % 30.4 % (19-41); Mean Corp Hgb Conc 36.3 g/dL (32-36); Mean Corpuscular Hgb 32.5 pg (27.0-32.0); Mean Corpuscular Volume 89.5 fL (80-94); Mean Platelet Vol. 10.2 fl (6.2-12.0); Monocyte# 0.47 X10^3/uL; Monocyte% 8.3 % (0-10); NRBC Flagged by Analyzer 0 % (0-5); Neutrophil # 3.25 X10^3/uL (2.7-7.7); Neutrophil % 57.6 % (47-70); Platelet Count 226 K/mm3 (150-450); RBC Distribution Width SD 39.1 fl (35.1-43.9); Red Blood Count 4.86 M/mm3 (4.6-6.2); White Blood Count 5.7 K/mm3 (4.4-11.0)
[2022-04-05 13:44] LABS: Anion Gap 6 (5-15); BUN 17 mg/dL (7-18); BUN/Creat Ratio 15.6 RATIO (10-20); Calcium,Total 9.1 mg/dL (8.5-10.1); Chloride 105 mmol/L (98-107); Creatinine, Serum 1.09 mg/dL (0.70-1.30); EST Glomerular Filtration Rate 80 mL/min (>60); Est Glom Filt Rate - Afr Amer 96 mL/min (>60); Estimated Creatinine Clearance 99.87 ml/min; Glucose 93 mg/dL (74-106); Potassium 4.4 mmol/L (3.5-5.1); Sodium Level 139 mmol/L (136-145); Troponin-I HS 4 pg/mL (3.0-78.0)
--- NOTE | 2022-04-05 14:00 | RAD_ITS ---
EXAM: XR CHEST, 1 VIEW CLINICAL INDICATION: chest pain TECHNIQUE: Frontal view of the chest. This report was created using [employer] report generation technology. COMPARISON: XR Chest dated 10/17/2020 FINDINGS: LUNGS AND PLEURAL SPACES: Normal. No consolidation or edema. No pneumothorax. No effusion. HEART: Normal heart size. MEDIASTINUM: No mediastinal or hilar mass. BONES/JOINTS: No acute abnormality. SOFT TISSUES: Normal. RAD/Chest 1 View (Portable) IMPRESSION: No acute cardiopulmonary abnormality. No interval change. Electronically Signed: Marcial Duggan MD at 14:24 EST ,
--- NOTE | 2022-04-05 14:18 | ED.VIS.CHEST ---
HPI History of Present Illness Chief Complaint: Chest Pain Detail of Chief Complaint: Left sided chest pressure Informant: patient Onset/Context/Timing Onset: Today and Hours Activity at onset: sudden Timing: Intermittent (Duration until 1240) Quality: Positive for Pressure Location: Left Chest Current Severity: Gone Maximum Severity: Moderate Worsened By: Nothing Relieved By: Nothing Associated Symptoms: Positive for Nausea and Dyspnea; Negative for Vomiting, Diaphoresis, Cough, Fever, Lightheadedness, Acid Reflux or Palpitations Narrative Narrative: Patient is a 41-year-old male with no past medical history. There is no family history of coronary disease. Patient presently is not having pain. Patient states the pain/pressure subsided after he was told his EKG is normal. Patient states he was checking on to job sites. He developed left-sided chest pressure without radiation and shortness of breath with nausea. He was not diaphoretic. He denies prior history of chest discomfort. He denies history of peptic ulcer disease, hiatal hernia or reflux. Patient denies intolerance to greasy or fried foods. Patient is not noted change in stool and denies black or maroon-colored stool. He denies history of VTE and has no risk factors. Prior Similar Symptoms: No Recent Illness/Hospitalization: No CVD Risk Factors: Negative for Hypertension, Diabetes, Hypercholesterolemia, Family History 1' </=55 or Smoking PE Risk Factors: Negative for Recent Travel/Surgery, Recent Immobilization, Prior DVT or PE or Cancer TAD Risk Factors: Negative for Marfan's Syndrome, Hypertension or Family History [facility] Medical History (Updated 04/05/22 @ 17:[address] Jozef Cantu MD) Acute bacterial conjunctivitis Acute posthemorrhagic anemia Allergic rhinitis Anxiety Chest pain on breathing Chlamydia contact Elevated d-dimer Hematuria, microscopic Neoplasm of uncertain behavior of skin Paresthesias Pulmonary nodule Pulmonary nodules Rectal prolapse Sleep deprivation Thyromegaly Tremor Home Medications NK 03/18/18 [History Last Taken Unknown] Allergy/AdvReac Type Severity Reaction Status Date / Time No Known Allergies Allergy Verified 10/17/20 03:52 Family History Mother bipolar disorder Grandmother Breast cancer Alzheimers disease Sister Fibromyalgia Surgical History H/O hemorrhoidectomy right ankle surgery Social History (Updated 04/05/22 @ 14:[address] Jozef Cantu MD) household members: spouse and none Smoking Status: Former smoker second hand exposure: No alcohol intake: current alcohol intake frequency: holidays/special occasions only substance use type: does not use caffeine: Yes Type: coffee what type of physical activity do you participate in: walking frequency: daily ROS ROS ED Constitutional Constitutional ED: Denies chills, fever(s), subjective, sweats or weight loss Eyes Eyes: Reports none ENT ENT ED: Denies ear pain, rhinorrhea or sore throat Cardiovascular Cardiovascular: Reports as per HPI; Denies orthopnea or paroxysmal nocturnal dyspnea Respiratory/Chest Respiratory/Chest: Reports dyspnea; Denies cough, dyspnea on exertion, orthopnea or paroxysmal nocturnal dyspnea Gastrointestinal Gastrointestinal: Reports nausea; Denies abdominal pain, constipation, diarrhea, melena or vomiting Genitourinary Genitourinary ED: Denies dysuria, hematuria or urinary frequency Musculoskeletal Musculoskeletal: Denies arthralgias, back pain, myalgias or neck pain Neurologic Neurologic: Denies headache(s), paresthesias or weakness Psychiatric Psychiatric: Denies anxiety, depression or suicidal ideation Hematologic/Lymphatic Hematologic/Lymphatic: Denies easy bleeding or easy bruising EXAM Physical Exam Const Vital Signs: 04/05/22 12:41 04/05/22 15:24 Temperature 97.5 F L Temperature Source Temporal Pulse Rate 72 Respiratory Rate 18 Blood Pressure 164/96 H Blood Pressure Mean 118 Pulse Ox 95 Oxygen Delivery Method Room Air Room Air Positive well nourished and well developed; Negative for obese General Appearance ED: well developed and NAD; Negative for pallor Nutritional Appearance: Negative for obese HEENT Reports moist mucous membranes HEENT Narrative: Ears normal. Nares patent. Mucosa moist. normocephalic and atraumatic Eyes PERRL and EOMs intact bilaterally General Eye ED: Negative for pale conjunctiva or scleral icterus Neck no lymphadenopathy, supple and no JVD Resp normal respiratory effort and clear to auscultation bilaterally Cardio regular rate, regular rhythm, S1 normal heart sound, S2 normal heart sound and no murmurs Peripheral Pulses: pulses 2+ throughout GI normal to inspection, nondistended, normoactive bowel sounds, soft to palpation, non-tender and non-distended Palpation: Negative for splenomegaly Back/Spine no CVA tenderness Extremity normal to inspection Extremity Narrative: There is no asymmetry, swelling, discoloration, leg vein distention, palpable cords or tenderness along the distribution of the deep venous system. Neuro oriented x3, CN's II-XII intact bilaterally and no sensory deficits noted Sensorium / Orientation: awake and alert Psych mental status grossly normal Mood & Affect: Negative for depressed or anxious Skin no rashes or lesions noted and no wounds General Skin Exam: Negative for jaundice or pallor MDM MDM MDM Narrative Medical decision making narrative: 1 left-sided chest pressure need to evaluate for cardiac versus noncardiac in etiology. Chest x-ray was obtained to assess for pulmonary etiology and assess size of heart and evaluate mediastinum. CBC to assess for anemia. Basic metabolic panel to assess for renal function and troponin. First troponin is 4. 2-hour troponin was ordered. Lab Data Attestation: I reviewed the patient's lab results. Lab results narrative: First troponin was poor second troponin is poor with a delta of 0. Both are under 7. Based on high-sensitivity troponin algorithm negative predictive value is 100% for cardiac. Therefore patient be discharged to home. Patient raise question could this be due to anxiety. It is a possibility. Labs: Laboratory Results - last 24 hr 04/05/22 04/05/22 04/05/22 13:15 13:15 15:01 WBC 5.7 RBC 4.86 Hgb 15.8 Hct 43.5 MCV 89.5 MCH 32.5 H MCHC 36.3 H RDW Std Deviation 39.1 RDW Coeff of Poli 12.0 Plt Count 226 MPV 10.2 Immature Gran % (Auto) 0.500 Neut % (Auto) 57.6 Lymph % (Auto) 30.4 [place] % (Auto) 8.3 Eos % (Auto) 2.1 Baso % (Auto) 1.1 H Absolute Neuts (auto) 3.3 Absolute Lymphs (auto) 1.72 Nucleated RBC % 0 Sodium 139 Potassium 4.4 Chloride 105 Carbon Dioxide 28.0 Anion Gap 6 BUN 17 Creatinine 1.09 Estim Creat Clear Calc 99.87 Est GFR (MDRD) Af Amer 96 Est GFR (MDRD) Non-Af 80 BUN/Creatinine Ratio 15.6 Glucose 93 Calcium 9.1 Troponin I High Sens 4 4 Radiography Chest X-Ray - ED: 1 View and Read by ED Physician (Normal cardiac silhouette and size. Perihilar region normal. Osseous structures are unremarkable. There is no evidence of effusion. This was independently reviewed and interpreted by me at 1425.) Diagnostic Testing: Clinical Impression(s) from Imaging Studies Chest X-Ray 04/05/22 14:00 IMPRESSION: No acute cardiopulmonary abnormality. No interval change. Electronically Signed: Marcial Duggan MD at 14:24 EST , EKG Initial EKG: Attestation: I personally reviewed and interpreted this EKG as follows: Interpretation: Sinus Rhythm (Rate is 72. EKG is normal. NE interval 248 ms. QS duration 84 ms. QT duration 384 ms. [place] is normal.) Prior: No Prior Discharge Plan Triage Chief Complaint: Chest Pain ED Provider: Jozef Cantu Dx/Rx/DC Orders Clinical Impression: Chest pain of uncertain etiology, Acute dyspnea Instructions: ED Chest Pain, Noncardiac Prescriptions: No Action NK Primary Care Provider: Janeth Blas Referrals: Janeth Blas DO [Primary Care Provider] - 1-2 Weeks Disposition Disposition: Home, Self Care
[2022-04-05 16:34] LABS: Troponin-I HS 4 pg/mL (3.0-78.0)
[2022-04-05 17:00] VITALS: BP 142/77; PULSE 69; RESP 15; O2SAT 98
== END 2022-04-05 17:11 | disposition home or self-care (01) ==
PROVIDERS: Emergency Provider Emergency Medicine; PCP Internal Medicine; Visit Provider Emergency Medicine
DX: R07.9 Chest pain, unspecified (principal); R06.00 Dyspnea, unspecified; Z87.891 Personal history of nicotine dependence
CPT/HCPCS: 71045; 80048; 84484; 85025; 93005; 99284; A4216

== ENCOUNTER 2022-06-01 08:00 | Outpatient (RCR) | payer BC, SELFPAY ==
--- NOTE | 2022-05-03 14:29 | HP.PTEVAL_ITS ---
Patient's Visit Information JOSH ROBERSON is a 41 year old M referred to Physical Therapy by Dr. Jon Russo, DO with a diagnosis of LUMBAR STENOSIS, DISC DISPLACEMENT AND SPONDYLOSIS WITH RADICULOPATHY. Date of Evaluation: 05/03/22 Physical Therapist: Marilu Holley, PT, Cert MDT - Visit Plan Frequency: 2-3x /Week Duration: 4-6 Weeks Plan: US, E-STIM WITH MH OR CP, POSTURE CORRECTION/STRENGTHENING, INSTRUCTION IN APPROPRIATE BODY MECHANICS AND ACTIVITY MODIFICATIONS. DLS STARTING WITH A NEUTRAL SPINE PROGRESSING ROM TOLERATED. AV LE ROM, STRETCHING AND STRENGTHENING. HEP INSTRUCTION. CONSIDER AQUATIC THERAPY. - Subjective Work/Leisure: [employer]. [employer] RO[employer] BUT SOME LABOR. Disability: NO. Present symptoms: RIGHT LOW BACK AND THIGH PAIN. Present since: CHRONIC FOR YEARS BUT FLARED UP ABOUT 4-6 MONTHS AGO WHEN BENT OVER TO [facility] A TOWEL. Pain Scale: WORST 8/10, LEAST 2/10. Is it getting better, worse or staying the same: GETTING WORSE. Symptoms at onset: RIGHT LOW BACK PAIN. Worse: BENDING, SITTING, DRIVING, TRYING TO SLEEP, LIFTING, RISING FROM SITTING, STARTING TO WALK AFTER SITTING AND IN THE MORNING. Better: LAYING DOWN FOR SHORT PERIODS OF TIME. Disturbed sleep: YES. Previous history/Previous treatment: PATIENT REPORTS HE HAS DONE ABOUT 30 CHIROPRACTIC VISITS IN THE LAST. Treatment this episode: CONSULT WITH DR. NIELSEN AND DR. NUÑEZ REFERRED HIM TO DR. RUSSO. PATIENT REPORTS DR. RUSSO RECOMMENDED [facility] BUT IT HAS NOT BEEN APPROVED BY HIS INSURANCE UNTIL HE TRIES PT. Coughing/sneezing/straining: POSITIVE. Gait: PATIENT REPORTS DIFFICULTY RISING FROM SITTING AND INITIATING GAIT AFTER SITTING. HAS TO TAKE SHORT STEPS INITIALLY BUT THEN PACE AND STRIDE IMPROVE TO NEAR NORMAL. Bowel or Bladder Dysfunction: NO. Unexplained weight loss: NO. Imaging: LUMBAR MRI SHOWING 2 HERNIATED DISCS PER PATIENT REPORT. MRI WAS DONE AT [facility]. PMH/Recent major surgery: UNREMARKABLE - Objective Sitting/Standing Posture: POOR. REDUCED LUMBAR LORDOSIS BUT NO RELEVANT LATERAL SHIFT WITH PATIENT ABLE TO CROSS MIDLINE AV. Active Correction of posture: WORSE BUT SEEMS TO TOLERATE LUMBAR SUPPORT IN SITTING WELL FOR PASSIVE CORRECTION. Other Observations: THIS PATIENT AMBULATES INDEP'LY INTO PT TODAY WITH DECREASED CADANCE, DECREASED AV STRIDE LENGTH AND MILD LIMP ON R LE. DIFFICULTY RISING FROM SITTING AND INITIATING GAIT AFTER SITTING. UE DEPENDANT TO TRANSFER SIT TO STAND. Sensory deficit: AV LE LIGHT TOUCH SENSATION GROSSLY INTACT AND SYMMETRICAL. ROM deficit: TIGHT AV HS'S AND GASTROC SOLEUS COMPLEX'S. Motor deficit: RIGHT LE: HIP 4-/5, KNEE 5/5, ANKLE 5/5. LEFT LE: HIP 4/5, KNEE 5/5, ANKLE 5/5. Reflexes: 2/3 AV LE'S. Dural Signs: POSITIVE AV LE'S RIGHT > LEFT. Lumbar mvmt loss: flex - MICHAEL - INCRASES R LB AND R LEG PAIN. ext - MOD - INCREASES R LB AND R LEG PAIN. R SG - MOD - INCREASES R LBP. L SG - MIN - NE. Core strength: FAIR. TREATMENT: NEUROMUSCULAR REEDU CATION - INTRO TO RETRAINING OF MVMT AND POSTURE FOR SITTING, LYING AND STANDING ACTIVITIES. - Balance/Special Test Scores Oswestry Low Back Score: 15 - Goals Goal 1:: DECREASE C/O RIGHT LOW BACK PAIN AND R LE SX'S. Goal Time Frame: 4-6 Weeks Goal 2:: IMPROVE PERSONAL CARE, LIFTING, SITTING, STANDING, SLEEP, SOCIAL LIFE, TRAVEL AND WORK FUNCTION Goal Time Frame: 4-6 Weeks Goal 3:: INSTRUCT IN PROPHYLAXIS Goal Time Frame: 4-6 Weeks - Anticipated Interventions Patient/Client Instruction: Educate patient on: Condition, Plan of Care, Risk Factors For the Purpose of:: To improve self management Therapeutic Exercise to Include: Strength training, Body mechanics, Postural training, Flexibilty training, Gait and locomotor training, Neuromotor development, In an aquatic setting, Dynamic Lumbar Stabilization For the Purpose of:: To decrease pain, To increase ROM, To improve muscle performance and motor function, To increase tolerance to activity/condition/position, To improve ability of physical actions for home/community/work/leisure, To improve gait and locomotor functions TENS: Yes IF ES: Yes Cryotherapy (ice pack, ice massage): Yes Thermo therapy (hot pack): Yes Ultrasound (thermal/non thermal): Yes For the Purpose of:: To decrease pain, To decrease swelling/inflammation, To improve nutrient delivery to tissue Thank you for the opportunity to evaluate your patient. For Medicare and Medicare HMO plans, please review the plan of care and approve it. It will need to be FAXED BACK to us at [phone] for Medicare purposes. For Medicare only, by signing this I certify the plan of care. Please let me know if there are questions or concerns regarding this plan of care. Physician Signature: Date:
--- NOTE | 2022-07-05 11:41 | HP.PT.NRP ---
JOSH ROBERSON was seen in my office for initial evaluation on 05/03/22. The following Plan of Care was established for this patient: Initial Frequency: 2-3x /Week Initial Duration: 4-6 Weeks Patient/Client Instruction: Educate patient on: Condition, Plan of Care, Risk Factors For the Purpose of:: To improve self management Therapeutic Exercise to Include: Strength training, Body mechanics, Postural training, Flexibilty training, Gait and locomotor training, Neuromotor development, In an aquatic setting, Dynamic Lumbar Stabilization For the Purpose of:: To decrease pain, To increase ROM, To improve muscle performance and motor function, To increase tolerance to activity/condition/position, To improve ability of physical actions for home/community/work/leisure, To improve gait and locomotor functions TENS: Yes - NOT COVERED BY INSURANCE IF ES: Yes - NOT COVERED BY INSURANCE Cryotherapy (ice pack, ice massage): Yes Thermo therapy (hot pack): Yes Ultrasound (thermal/non thermal): Yes For the Purpose of:: To decrease pain, To decrease swelling/inflammation, To improve nutrient delivery to tissue This patient was last seen in our office 06/01/22. Pertinent comments regarding their Physical therapy will appear below: This patient has not returned to Physical Therapy and is appropriate to return to MD for further follow-up as needed. At this point I will be discontinuing this patient from physical therapy. I would be happy to see this patient again in the future if found appropriate by the physician. Thank you! Marilu Holley, PT, Cert MDT Balance/Gait/Functional tests - Balance/Special Test Scores Oswestry Low Back Score: 15
== END 2022-06-01 19:00 | disposition home or self-care (01) ==
LOC: PT 08:00
PROVIDERS: PCP Internal Medicine; Referring Provider Orthopaedic Surgery; Visit Provider Orthopaedic Surgery
DX: M48.061 Spinal stenosis, lumbar region without neurogenic claudication (principal); M51.26 Other intervertebral disc displacement, lumbar region; M47.26 Other spondylosis with radiculopathy, lumbar region
CPT/HCPCS: 97035; 97112; 97162; 97530

== ENCOUNTER 2022-11-28 21:34 | Emergency (ER) | payer BC, SELFPAY ==
[2022-11-28 21:34] VITALS: BP 163/90; PULSE 120; RESP 18; TEMP 36.8; O2SAT 98; BMI 28.2
--- NOTE | 2022-11-28 22:11 | EDS_ITS ---
HPI History of Present Illness Chief Complaint: GI Bleed Informant: patient Onset/Context/Timing Onset: Days (4-5) Context: Gradual Onset Timing: Intermittent Quality: Sharp Location: Rectum Worsened by: Movement, standing, sitting Relieved by: Nothing Narrative Narrative: Patient presents with with rectal pain that has been intermittent over the last 4 to 5 days. Patient states he knows he has a hemorrhoid there. Patient states it is gotten more painful. Patient describes the pain as sharp. Patient states it is worse with movement, standing, and sitting. Patient states nothing seems to help with the pain. Patient states she has been using Preparation H with no improvement. Patient states that he has had a hemorrhoidectomy in the past. Patient admits to some subjective fevers and chills. Patient denies any nausea or vomiting. [facility] Medical History (Updated 11/28/22 @ 23:[address] Lino Hobbs DO) Acute bacterial conjunctivitis Acute posthemorrhagic anemia Allergic rhinitis Anxiety Chest pain on breathing Chlamydia contact Elevated d-dimer Hematuria, microscopic Neoplasm of uncertain behavior of skin Paresthesias Pulmonary nodule Pulmonary nodules Rectal prolapse Sleep deprivation Thyromegaly Tremor Home Medications hydrocodone-acetaminophen 5-325mg 5mg-325mg 1 tab PO Q6H PRN PRN Pain 3 days #10 TABLETS 11/28/22 [Rx Last Taken Unknown] hydrocortisone 2.5 % topical cream with perineal applicator (Anusol-HC) 1 applic [place] QHS PRN hemorrhoids #30 grams 11/28/22 [Rx Last Taken Unknown] meloxicam 15 mg tablet 15 mg PO DAILY 11/28/22 [History Last Taken Unknown] Allergy/AdvReac Type Severity Reaction Status Date / Time No Known Allergies Allergy Verified 11/28/22 21:37 Family History Mother bipolar disorder Grandmother Breast cancer Alzheimers disease Sister Fibromyalgia Surgical History H/O hemorrhoidectomy right ankle surgery Social History household members: spouse and none Smoking Status: Former smoker second hand exposure: No alcohol intake: current alcohol intake frequency: holidays/special occasions only substance use type: does not use caffeine: Yes Type: coffee what type of physical activity do you participate in: walking frequency: daily ROS ROS ED Constitutional Constitutional ED: Reports chills, fever(s) and subjective Eyes Eyes: Reports blurry vision; Denies diplopia ENT ENT ED: Reports rhinorrhea and sore throat Cardiovascular Cardiovascular: Denies chest pain or palpitations Respiratory/Chest Respiratory/Chest: Denies cough or dyspnea Gastrointestinal Gastrointestinal: Denies nausea or vomiting Genitourinary Genitourinary ED: Denies dysuria or hematuria Musculoskeletal Musculoskeletal: Reports back pain; Denies neck pain Integumentary Denies abscess or rash Neurologic Neurologic: Reports headache(s); Denies weakness Allergic/Immunologic Allergic/Immunologic ED: Denies mouth swelling or urticaria EXAM Physical Exam Const Vital Signs: 11/28/22 21:34 Temperature 98.3 F Temperature Source Temporal Pulse Rate 120 H Respiratory Rate 18 Blood Pressure 163/90 H Blood Pressure Mean 114 Pulse Ox 98 Oxygen Delivery Method Room Air Positive well nourished and well developed General Appearance ED: well developed and NAD HEENT Reports moist mucous membranes Neck supple and no JVD Resp normal respiratory effort and clear to auscultation bilaterally Cardio regular rate, regular rhythm and no murmurs GI normal to inspection, nondistended, normoactive bowel sounds and non-tender GI Narrative: Rectal exam showed an external hemorrhoid. There is no active bleeding. There is no thrombosis noted. There is tenderness to palpation over the hemorrhoid. Palpation: soft Rectal Exam: external hemorrhoid(s) and tenderness Extremity normal to inspection General Extremety ED: Negative for edema or tenderness General Extremity: Negative for edema Neuro oriented x3, CN's II-XII intact bilaterally and no sensory deficits noted Sensorium / Orientation: alert Motor Exam: strength 5/5 throughout Psych mental status grossly normal Skin no rashes or lesions noted MDM MDM MDM Narrative Medical decision making narrative: Due to the patient's complaint of rectal bleeding, CBC will be obtained to assess for anemia. Basic metabolic profile will be obtained to assess for electrolyte abnormality and renal function. Patient will be given injection of morphine. Lab Data Attestation: I reviewed the patient's lab results. Lab results narrative: CBC was reviewed and shows a slight leukocytosis of 11.6. Hemoglobin and hematocrit are stable. Platelets are normal. Basic metabolic profile was reviewed and was within normal limits. Labs: Laboratory Results - last 24 hr 11/28/22 22:36 WBC 11.6 H RBC 4.75 Hgb 14.7 Hct 43.7 MCV 92.0 MCH 30.9 MCHC 33.6 RDW Std Deviation 40.0 RDW Coeff of Poli 11.8 Plt Count 250 MPV 10.3 Immature Gran % (Auto) 0.400 Neut % (Auto) 78.1 H Lymph % (Auto) 8.1 L [place] % (Auto) 12.5 H Eos % (Auto) 0.4 Baso % (Auto) 0.5 Absolute Neuts (auto) 9.0 H Absolute Lymphs (auto) 0.94 Nucleated RBC % 0 Sodium 137 Potassium 3.4 L Chloride 104 Carbon Dioxide 26.0 Anion Gap 7 BUN 12 Creatinine 1.28 Estim Creat Clear Calc 84.20 Est GFR (MDRD) Af Amer 80 Est GFR (MDRD) Non-Af 66 BUN/Creatinine Ratio 9.4 L Glucose 114 H Calcium 9.1 Treatment and Re-Evaluation :: Patient is feeling better on reevaluation after injections of morphine and Zofran. Patient was given prescriptions for Anusol HC cream and a short course of Hamler. Patient was instructed to follow-up with a general surgeon in 5 to 7 days for reevaluation. Patient understood and was agreeable with the plan. All questions were answered. Discharge Plan Triage Chief Complaint: GI Bleed ED Provider: Lino Hobbs Dx/Rx/DC Orders Clinical Impression: External hemorrhoid Instructions: ED Hemorrhoids Prescriptions: New hydrocodone-acetaminophen [hydrocodone-acetaminophen] 5-325 mg tablet 1 tab PO Q6H PRN PRN (Reason: Pain) 3 Days Qty: 10 0RF hydrocortisone [Anusol-HC] 2.5 % cream with perineal applicator 1 applic NH QHS PRN (Reason: hemorrhoids) Qty: 30 0RF No Action meloxicam 15 mg tablet 15 mg PO DAILY Patient Comments: TAKE 1 TABLET BY MOUTH ONCE DAILY Primary Care Provider: Janeth Blas Referrals: Roberto Ramsay MD [Med Staff - Active Staff] - 3-5 Days Janeth Blas DO [Primary Care Provider] - 3-5 Days Disposition Disposition: Home, Self Care
[2022-11-28] MEDS: 0.9% Normal Saline 1,000 ML 1000 ML IV (22:30)
[2022-11-28] MEDS: Morphine 4 MG/ML Syringe IV (22:30)
[2022-11-28] MEDS: Ondansetron 4 MG/2 ML Vial IV (22:30)
[2022-11-28 22:50] LABS: Absolute Lymphocyte Count 0.94 X10^3/uL (0.83-4.51); Basophil# 0.06 X10^3/uL; Basophil% 0.5 % (0-1); Eosinophil# 0.05 X10^3/uL; Eosinophils% 0.4 % (0-5); Hematocrit 43.7 % (40-54); Hemoglobin 14.7 g/dL (13.0-16.5); Lymphocyte # 0.94 X10^3/ul (0.83-4.51); Lymphocyte % 8.1 % (19-41); Mean Corp Hgb Conc 33.6 g/dL (32-36); Mean Corpuscular Hgb 30.9 pg (27.0-32.0); Mean Platelet Vol. 10.3 fl (6.2-12.0); Monocyte# 1.45 X10^3/uL; Monocyte% 12.5 % (0-10); NRBC Flagged by Analyzer 0 % (0-5); Neutrophil # 9.02 X10^3/uL (2.7-7.7); Neutrophil % 78.1 % (47-70); Platelet Count 250 K/mm3 (150-450); RBC Distribution Width CV 11.8 % (11.6-14.6); Red Blood Count 4.75 M/mm3 (4.6-6.2); White Blood Count 11.6 K/mm3 (4.4-11.0)
[2022-11-28 23:20] LABS: Anion Gap 7 (5-15); BUN 12 mg/dL (7-18); BUN/Creat Ratio 9.4 RATIO (10-20); Calcium,Total 9.1 mg/dL (8.5-10.1); Chloride 104 mmol/L (98-107); Creatinine, Serum 1.28 mg/dL (0.70-1.30); EST Glomerular Filtration Rate 66 mL/min (>60); Est Glom Filt Rate - Afr Amer 80 mL/min (>60); Glucose 114 mg/dL (74-106); Potassium 3.4 mmol/L (3.5-5.1); Sodium Level 137 mmol/L (136-145)
[2022-11-29] MEDS: Lidocaine Jelly 2% 20 ML Syringe (URO-JET) 1 APPLIC TOPICAL (00:03)
== END 2022-11-29 00:12 | disposition home or self-care (01) ==
PROVIDERS: Emergency Provider Emergency Medicine; PCP Internal Medicine; Visit Provider Emergency Medicine
DX: K64.4 Residual hemorrhoidal skin tags (principal); Z87.891 Personal history of nicotine dependence
CPT/HCPCS: 80048; 85025; 96361; 96374; 96375; 99282; J7030; A4216; J2405

== ENCOUNTER → 2023-04-29 | Outpatient (CLI) | payer BC, SELFPAY ==
[2023-04-29 12:16] LABS: Absolute Neutrophil Count 2.9 X10^3/uL (2.0-7.7); Basophil# 0.08 X10^3/uL; Basophil% 1.6 % (0-1); Eosinophil# 0.07 X10^3/uL; Eosinophils% 1.4 % (0-5); Hematocrit 45.9 % (40-54); Hemoglobin 15.4 g/dL (13.0-16.5); Lymphocyte % 26.5 % (19-41); Mean Corp Hgb Conc 33.6 g/dL (32-36); Mean Corpuscular Hgb 30.6 pg (27.0-32.0); Mean Corpuscular Volume 91.1 fL (80-94); Mean Platelet Vol. 10.8 fl (6.2-12.0); Monocyte# 0.52 X10^3/uL; Monocyte% 10.6 % (0-10); NRBC Flagged by Analyzer 0 % (0-5); Neutrophil # 2.88 X10^3/uL (2.7-7.7); Neutrophil % 58.9 % (47-70); Platelet Count 256 K/mm3 (150-450); RBC Distribution Width CV 12.4 % (11.6-14.6); RBC Distribution Width SD 40.8 fl (35.1-43.9); Red Blood Count 5.04 M/mm3 (4.6-6.2); White Blood Count 4.9 K/mm3 (4.4-11.0)
[2023-04-29 12:30] LABS: ALB/GLOB Ratio 1.1 RATIO (0.9-2.4); AST(SGOT) 15 U/L (15-37); Alanine Aminotransfer ALT/SGPT 28 U/L (16-61); Albumin, Serum 4.1 g/dL (3.2-5.0); Alkaline Phosphatase 42 U/L (45-117); Anion Gap 1 (5-15); BUN 14 mg/dL (7-18); BUN/Creat Ratio 12.1 RATIO (10-20); Calcium,Total 9.4 mg/dL (8.5-10.1); Chloride 107 mmol/L (98-107); Cholesterol 259 mg/dL (200); Creatinine, Serum 1.16 mg/dL (0.70-1.30); EST Glomerular Filtration Rate 74 mL/min (>60); Est Glom Filt Rate - Afr Amer 89 mL/min (>60); Globulin 3.9 g/dL (2.2-4.2); Glucose 94 mg/dL (74-106); High Density Lipoprotein 46 mg/dL; Sodium Level 139 mmol/L (136-145); Triglycerides 136 mg/dL; Troponin-I HS 6 pg/mL (3.0-78.0); Very Low Density Lipoprotein 27 mg/dL (5-40)
[2023-04-29 12:34] LABS: D-Dimer Quantitative (DVT/PE) < 0.27 FEU/ug/m (0.27-0.49)
== END | disposition home or self-care (01) ==
LOC: LABSPEC 11:55
PROVIDERS: PCP Internal Medicine; Referring Provider Internal Medicine; Visit Provider Internal Medicine
DX: R07.89 Other chest pain (principal)
CPT/HCPCS: 80053; 80061; 84484; 85025; 85379

== ENCOUNTER → 2023-08-02 | Outpatient (CLI) | payer BC, SELFPAY ==
--- NOTE | 2023-08-02 14:00 | CT_ITS ---
STUDY: CT BRAIN WITHOUT CONTRAST REASON FOR EXAM: Male, 43 years old. Headache, temporal RADIATION DOSAGE (If Supplied By Facility): CTDIvol = ( 44.99 ) mGy, DLP = ( 829.85 ) mGycm TECHNIQUE: Transaxial CT imaging of the brain was performed without administration of intravenous contrast material. Individualized dose optimization techniques were used for this CT. COMPARISON: No relevant priors. FINDINGS: Normal soft tissue structures. Normal calvarium. Normal size ventricles and extra-axial spaces for the patient''s age. Normal white matter tracts of the cerebral hemispheres. Normal basal ganglia and thalami. Normal brainstem. Normal cerebellum. There is no intracranial hemorrhage. There are no findings of an acute ischemic infarction. Normal visualized paranasal sinuses. CT/Brain/Head without Contrast IMPRESSION: Normal unenhanced CT scan of the brain. Electronically Signed: Samuel Swenson MD at 14:32 EDT ,
== END | disposition home or self-care (01) ==
PROVIDERS: PCP Internal Medicine; Referring Provider Internal Medicine; Visit Provider Internal Medicine
DX: R51.9 Headache, unspecified (principal)
CPT/HCPCS: 70450